=== PATIENT | male | born 1950 ===

== ENCOUNTER 2024-04-21 14:28 | Inpatient (IN) ==
[2024-04-21] MEDS ORDERED: ONDANSETRON 4 MG/2 ML VIAL IV PRN (19:15)
[2024-04-21] MEDS ORDERED: IPRATROPIUM/ALBUTEROL 3 ML AMPUL.NEB NEB PRN (19:15)
[2024-04-21] MEDS ORDERED: morphine 4 MG/ML VIAL IV PRN (19:15)
[2024-04-21] MEDS: SENNOSIDES 1 TABLET PO SCH (20:03)
[2024-04-21] MEDS: 0.9 % SODIUM CHLORIDE 1,000 ML IV SCH (20:03)
[2024-04-21] MEDS: DOCUSATE SODIUM 100 MG CAPSULE PO SCH (20:03)
[2024-04-21] MEDS: 0.9 % SODIUM CHLORIDE 10 ML SYRINGE IV SCH (20:03)
[2024-04-21] MEDS ORDERED: NON FORMULARY MEDICATION 1 DOSE MISCELL (Acetaminophen 500 mg capsule) PO PRN (21:12)
[2024-04-21] MEDS ORDERED: CARBAMIDE PEROXIDE 6.5% OTIC SCH (21:15)
[2024-04-21] MEDS: cefTRIAXone 2 GM in DEXTROSE 5% IN WATER 50 ML IV SCH (21:38)
[2024-04-22 07:12] LABS: Blood Urea Nitrogen 42 mg/dL (8-23); Calcium 8.3 mg/dL (8.6-10.4); Carbon Dioxide 18 mmol/L (22-30); Chloride 105 mmol/L (96-108); Glomerular Filtration Rate 53; Glucose 119 mg/dL (70-105); Potassium 3.4 mmol/L (3.3-5.1); Sodium 141 mmol/L (133-145)
[2024-04-22] MEDS: OMEPRAZOLE 20 MG CAPSULE PO SCH (08:06)
[2024-04-22] MEDS: CYANOCOBALAMIN (VITAMIN B-12) 500 MCG TABLET PO SCH (08:56)
[2024-04-22] MEDS: FINASTERIDE 5 MG TABLET PO SCH (08:56)
[2024-04-22] MEDS: PHENYTOIN SOD 100 MG CAPSULE PO SCH ×2 (08:56→20:29)
[2024-04-22] MEDS: CALCIUM W/VIT D3 500 MG TABLET PO SCH (08:57)
[2024-04-22] MEDS: TAMSULOSIN 0.4 MG CAPSULE PO SCH (08:57)
[2024-04-22] MEDS: MONTELUKAST 10 MG TABLET PO SCH (08:57)
[2024-04-22] MEDS: ATENOLOL 25 MG TABLET PO SCH (08:59)
[2024-04-22] MEDS: amLODIPine 5 MG TABLET PO SCH (08:59)
[2024-04-22] MEDS: LISINOPRIL 20 MG TABLET PO SCH (08:59)
[2024-04-22] MEDS: MULTIVIT,THER IRON,CA,FA & MIN 1 TABLET PO SCH (08:59)
[2024-04-22] MEDS: BACLOFEN 10 MG TABLET PO SCH ×2 (08:59→20:30)
[2024-04-22] MEDS ORDERED: DOCUSATE SODIUM 100 MG CAPSULE PO SCH (09:00)
[2024-04-22 09:06] LABS: Basophils # (Auto) 0.02 K/mcL (0.00-0.30); Basophils % (Auto) 0.2 % (0.0-2.0); Eosinophils # (Auto) 0 K/mcL (0.00-0.70); Eosinophils % (Auto) 0 % (0.0-7.0); Hemoglobin 11.3 g/dL (13.7-17.5); Lymphocytes # (Auto) 1.02 K/mcL (1.50-4.80); Lymphocytes % (Auto) 8.9 % (15.5-49.0); Mean Cell Volume 103.6 fL (80.0-100.0); Mean Corpuscular HGB Conc 30.5 g/dL (31.0-36.0); Mean Platelet Volume 10.1 fL (8.8-12.5); Monocytes # (Auto) 2.03 K/mcL (0.10-0.90); Monocytes % (Auto) 17.6 % (1.0-12.0); Neutrophils % (Auto) 73.1 % (38.0-78.0); Platelet Count 113 K/mcL (140-440); RBC 3.57 M/mcL (4.63-6.08); Red Cell Distribution Width 14.4 % (11.5-14.5); WBC 11.5 K/mcL (4.5-11.0)
[2024-04-22] MEDS: MIRABEGRON 25 MG TAB.ER.24H PO SCH (09:12)
[2024-04-22] MEDS: ESCITALOPRAM 20 MG TABLET PO SCH (09:12)
[2024-04-22] MEDS: ASCORBIC ACID 500 MG TABLET PO SCH (09:16)
[2024-04-22] MEDS: PHENYTOIN SOD 100 MG CAPSULE PO ONE (12:31)
[2024-04-22] MEDS: 0.9 % SODIUM CHLORIDE 1,000 ML IV SCH (14:14)
[2024-04-22] MEDS: ACETAMINOPHEN 325 MG TABLET PO PRN (16:12)
[2024-04-22] MEDS: oxyCODONE IR 5 MG TABLET PO PRN (17:44)
[2024-04-22] MEDS: FLUTICASONE PROPIONATE SPRAY.NAS NS SCH (20:32)
[2024-04-23 06:31] LABS: Basophils # (Auto) 0.01 K/mcL (0.00-0.30); Basophils % (Auto) 0.2 % (0.0-2.0); Eosinophils # (Auto) 0.05 K/mcL (0.00-0.70); Eosinophils % (Auto) 0.9 % (0.0-7.0); Hematocrit 26.5 % (40.1-51.0); Hemoglobin 8.6 g/dL (13.7-17.5); Lymphocytes % (Auto) 14.5 % (15.5-49.0); Mean Corpuscular HGB Conc 32.5 g/dL (31.0-36.0); Mean Platelet Volume 10.2 fL (8.8-12.5); Monocytes # (Auto) 0.77 K/mcL (0.10-0.90); Monocytes % (Auto) 13.9 % (1.0-12.0); Neutrophils % (Auto) 70.3 % (38.0-78.0); Platelet Count 93 K/mcL (140-440); RBC 2.76 M/mcL (4.63-6.08); Red Cell Distribution Width 14.2 % (11.5-14.5); WBC 5.5 K/mcL (4.5-11.0)
[2024-04-23 06:55] LABS: ALT/SGPT 22 U/L (<40); AST/SGOT 55 U/L (<40); Albumin 3.2 gm/dL (3.2-5.2); Albumin/Globulin Ratio 1.8 (1.0-2.3); Alkaline Phosphatase 89 U/L (39-117); Bilirubin,Direct < 0.2 mg/dL (0-0.3); Bilirubin,Total 0.3 mg/dL (0.1-1.0); Blood Urea Nitrogen 30 mg/dL (8-23); Calcium 7.9 mg/dL (8.6-10.4); Carbon Dioxide 24 mmol/L (22-30); Chloride 104 mmol/L (96-108); Globulin 1.8 gm/dL (2.2-3.7); Glomerular Filtration Rate 73; Glucose 102 mg/dL (70-105); Lactate Dehydrogenase 194 U/L (135-225); Phosphorous 1.8 mg/dL (2.5-4.5); Potassium 2.8 mmol/L (3.3-5.1); Sodium 137 mmol/L (133-145); Triglycerides 105 mg/dL (<150); Uric Acid 7.2 mg/dL (2.5-8.0)
[2024-04-23] MEDS: POTASSIUM CHLORIDE 40 MEQ in DEXTROSE 5% IN WATER 500 ML IV ONE (08:23)
[2024-04-23] MEDS: POTASSIUM CHLORIDE 20 MEQ TABLET PO ONE (08:31)
[2024-04-23] MEDS: POTASSIUM CHLORIDE 10 MEQ/100 ML BAG IV SCH (08:34)
[2024-04-23] MEDS: NEUTRA PHOS 1 PACKET PO SCH (11:16)
[2024-04-24 06:38] LABS: Basophils # (Auto) 0.01 K/mcL (0.00-0.30); Basophils % (Auto) 0.2 % (0.0-2.0); Eosinophils # (Auto) 0.08 K/mcL (0.00-0.70); Eosinophils % (Auto) 1.4 % (0.0-7.0); Hematocrit 29.9 % (40.1-51.0); Hemoglobin 9.7 g/dL (13.7-17.5); Lymphocytes # (Auto) 0.91 K/mcL (1.50-4.80); Lymphocytes % (Auto) 16.3 % (15.5-49.0); Mean Cell Volume 94.6 fL (80.0-100.0); Mean Corpuscular HGB Conc 32.4 g/dL (31.0-36.0); Mean Platelet Volume 10.2 fL (8.8-12.5); Monocytes % (Auto) 12.5 % (1.0-12.0); Neutrophils % (Auto) 69.4 % (38.0-78.0); Platelet Count 119 K/mcL (140-440); RBC 3.16 M/mcL (4.63-6.08); Red Cell Distribution Width 13.9 % (11.5-14.5); WBC 5.6 K/mcL (4.5-11.0)
[2024-04-24 07:16] LABS: ALT/SGPT 56 U/L (<40); AST/SGOT 84 U/L (<40); Albumin 3.1 gm/dL (3.2-5.2); Albumin/Globulin Ratio 1.4 (1.0-2.3); Alkaline Phosphatase 84 U/L (39-117); Bilirubin,Direct 0.3 mg/dL (<0.3); Bilirubin,Total 0.4 mg/dL (0.1-1.0); Blood Urea Nitrogen 18 mg/dL (8-23); Calcium 8.3 mg/dL (8.6-10.4); Carbon Dioxide 24 mmol/L (22-30); Chloride 105 mmol/L (96-108); Globulin 2.2 gm/dL (2.2-3.7); Glomerular Filtration Rate 88; Glucose 100 mg/dL (70-105); Lactate Dehydrogenase 204 U/L (135-225); Phosphorous 1.9 mg/dL (2.5-4.5); Potassium 3.3 mmol/L (3.3-5.1); Sodium 140 mmol/L (133-145); Triglycerides 82 mg/dL (<150); Uric Acid 5.9 mg/dL (2.5-8.0)
[2024-04-24] MEDS: ASPIRIN 81 MG TAB.CHEW PO SCH (09:51)
[2024-04-24] MEDS: NEUTRA PHOS 1 PACKET PO SCH (09:53)
[2024-04-24] MEDS: traZODone HCL 50 MG TABLET PO PRN (21:48)
== END 2024-04-25 11:27 | DRG 695 ==
LOC: MEDSUR 19:07
PROVIDERS: ADMIT Internal Medicine; ATTEND Internal Medicine